=== PATIENT | male | born 1985 | race Two or more races ===

== ENCOUNTER 2019-03-26 07:47 | Emergency (ER) | payer MEDICAID, OTHER ==
[~2019-03-26] VITALS: Ht 165.1 cm; Wt 86.2 kg
[2019-03-26 08:02] VITALS: BP 122/73
== END 2019-03-26 09:20 | disposition home or self-care (01) ==
LOC: ER 07:52
DX: H72.91 Unspecified perforation of tympanic membrane, right ear (principal)
CPT/HCPCS: 82962